=== PATIENT | male | born 1960 | race Caucasian/White ===

== ENCOUNTER → 2016-10-20 | Outpatient (CLI) | payer BC, OTHER ==
[~2016-10-20] MED LIST: AMLODIPINE BESY10 MG PO; DIOVAN HCT 160/1 TAB PO; DIOVAN320 MG PO; PRILOSEC PO; PROTONIX PO; TYLOX 5/500 CAP1 CAP PO
== END | disposition home or self-care (01) ==
LOC: CECH 13:00
DX: R01.1 Cardiac murmur, unspecified (principal); I51.7 Cardiomegaly
CPT/HCPCS: 93306

== ENCOUNTER → 2016-11-24 | Outpatient (CLI) | payer BC, OTHER | END | disposition home or self-care (01) | LOC: CECH 06:17 | DX: R93.1 Abnormal findings on diagnostic imaging of heart and coronary circulation (principal); I51.7 Cardiomegaly | CPT/HCPCS: 93312; J2250; J3010 ==